=== PATIENT | female | born 1965 | race Caucasian/White ===

== ENCOUNTER 2021-01-14 09:42 | Outpatient (CLI) | payer OTHER, SELFPAY ==
--- NOTE | ~2021-01-14 | CT_ITS ---
EXAMINATION: CT abdomen pelvis wo/w con DATE: 01/14/2021 10:15 INDICATION: Hematuria TECHNIQUE: Computed tomography (CT) of the abdomen and pelvis was performed without and subsequently with 130 cc Omnipaque 350 intravenous contrast. Automated exposure control and iterative reconstructi on technique were employed. Exam dose: 1033.36 mGy-cm total exam DLP. COMPARISON: None. FINDINGS: There is minimal dependent atelectasis in the lower lobes. Normal heart size. No pericardial or pleural effusion. There is a small sliding hiatal hernia. 1.7 cm heavily calcified gallstone. No gallbladder wall thickening or pericholecystic fluid or fat s tranding. No hepatic space-occupying mass lesion. No bile duct dilatation. No pancreatic mass lesion, calcifica tion or ductal dilatation. Normal splenic size. Normal morphology of the adrenal glands. No urinary tract calculus or hydroureteronephrosis. No renal space occupying mass lesion is evident. There is a very small lower pole left renal cortical cyst. Normal caliber of the abdominal aorta. No intraperitoneal or retroperitoneal or pelvic mass lesion or adenopathy or ascites. 1.8 cm right ovarian cyst. The uterus and ovaries are otherwise unremarkable. Normal appendix. No bowel obstruction or bowel wall thickening, pneumatosis or intraperitoneal free a ir. There is irregularity at the right posterior base of the urinary bladder. Given the history of hematu syed, bladder malignancy is not excluded. Consider cystoscopy with biopsy if necessary. No suspicious osteolytic or osteoblastic lesions are noted. IMPRESSION: Irregularity at the right posterior base of the urinary bladder; considering the history of hematuria, bladder malignancy is not excluded. Consider cystoscopy with biopsy if necessary. Cholelithiasis Small sliding hiatal hernia 1.8 cm right ovarian cyst Reviewed, dictated and finalized at [facility]. Reviewed, dictated and finalized at [facility]. IMPRESSION: Irregularity at the right posterior base of the urinary bladder; c onsidering the history of hematuria, bladder malignancy is not excluded. Consid er cystoscopy with biopsy if necessary. Cholelithiasis Small sliding hiatal hernia 1.8 cm right ovarian cyst
== END 2021-01-14 09:43 | disposition home or self-care (01) ==
PROVIDERS: PCP Nurse Practitioner Family
DX: R31.9 Hematuria, unspecified (principal); K80.20 Calculus of gallbladder without cholecystitis without obstruction; K44.9 Diaphragmatic hernia without obstruction or gangrene; N83.201 Unspecified ovarian cyst, right side
CPT/HCPCS: 74178; Q9967

== ENCOUNTER 2023-02-07 20:54 | Emergency (ER) | payer BC, SELFPAY ==
--- NOTE | ~2023-02-07 | XR_ITS ---
EXAM: XR finger 2nd LT min 2V DATE: 02/07/2023 22:35 HISTORY: lac dist phalanx Lt 2nd finger, r/o fb/fx . COMPARISON: None available. FINDINGS: Normal mineralization. No fracture or dislocation. No lytic or blastic lesion. Joint space s are maintained. No erosion or periosteal change. Soft tissue disruption at the tip of the second fi nger with possible nail/nailbed involvement. IMPRESSION: No acute osseous finding the left second finger. No radiopaque foreign body. Soft tissues laceration/avulsion with possible nailbed involvement. Reviewed, dictated and finalized at [facility].
[2023-02-07 21:05] VITALS: BP 154/78; PULSE 74; RESP 16; O2SAT 100
--- NOTE | 2023-02-08 00:14 | ED.WOUNDLAC ---
HPI - Wound/Laceration General Chief Complaint: Wound/Laceration Stated Complaint: finger laceration Time Seen by Provider: 02/07/23 21:40 Source: patient Mode of arrival: ambulatory Limitations: no limitations History of Present Illness HPI narrative: Patient is a 49-year-old female who presents to the ED with a laceration to her left second digit. Patient reports she was making a Halloween costume tonight when using fabric gladis when she accidentally cut off a piece of skin from her left second digit. She was able to save the additional piece of skin and did bring this in with her bandaged to her finger. Reports pain to digit, no other injuries. Denies numbness or tingling. Tetanus up-to-date. Related Data Home Medications Medication Instructions Recorded Confirmed levothyroxine 25 mcg capsule 25 mcg PO DAILY 01/27/21 11/08/22 Allergies Allergy/AdvReac Type Severity Reaction Status Date / Time No Known Allergies Allergy Mild Verified 02/07/23 20:55 Review of Systems Review of Systems: CONSTITUTIONAL: Denies fever, chills, or sweats. SKIN: See HPI. MUSCULOSKELETAL: See HPI. NEUROLOGIC: Denies tingling, numbness, or weakness. All systems reviewed & are unremarkable except as noted in HPI and below PMFSH Past Medical History Medical History History of thyroid disorder hypothyroid / graves disease Screening mammogram, encounter for Family History Family History Mother Carcinoma of colon Father Heart disease Diabetes mellitus Acute myocardial infarction Sibling Breast cancer sister H/O ovarian cancer sister Acute myocardial infarction sister Diabetes mellitus sister Social History Social History Smoking packs per day: 1 Smoking cigarettes per day: 20.0 Smoking status: Current every day smoker Tobacco type: cigarettes Alcohol intake: never Substance use: never Substance use type: does not use Lack of Transportation: No Lack of Food: Never True Current Housing: I Have Housing Concerned About Future Housing: No Difficulty Paying Gas/Electric Bills: No Difficulty Paying for Meds: No Currently Unemployed: No Education: High School Diploma/GED Difficulty w/ Childcare or Family Care: No Living arrangements: alone Additional living arrangements comments: Occupation/Education: occupation 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 HEAD: Normocephalic, atraumatic. NECK: Supple. No adenopathy, no masses. RESPIRATORY: Airway patent, respirations nonlabored. CARDIOVASCULAR: Regular rate and rhythm without murmurs, rubs, or gallops. Radial pulses 2+ and equal bilaterally. MUSCULOSKELETAL: Moves all extremities. Strength/ROM intact. Distal sharp touch sensation intact to left second digit. Approximately 2 X 1 cm oval shaped piece of skin avulsed from distal medial left second digit, currently bandaged to finger with bandage holding avulsed skin piece in place. No significant active bleeding. Thin layer of medial edge of nail avulsed. Cuticle intact. SKIN: Warm, dry, normal color. No rashes. NEURO: A&O X3. Speech clear. Cranial nerves II-XII grossly intact. Steady gait. No ataxic movements. PSYCHIATRIC: Appropriate mood and affect. Normal interaction. Course Vital Signs Vital signs: Vital Signs Pulse Rate 74 02/07/23 21:05 Respiratory Rate 16 02/07/23 21:05 Blood Pressure 154/78 H 02/07/23 21:05 Pulse Oximetry 100 02/07/23 21:05 Oxygen Delivery Room Air 02/07
[2023-02-08] MEDS: ceFAZolin SODIUM 1 GM VIAL IM (00:34)
[2023-02-08] MEDS: LIDOCAINE HCL 1% LOCAL INJ 10 ML VIAL 5 ML INFILTRATE (00:39)
[2023-02-08] MEDS: CELLULOSE OXIDIZED 2 x 14 INCH 1 PKT XX (01:24)
[2023-02-08 02:01] VITALS: BP 147/82; PULSE 71; RESP 16; O2SAT 100
== END 2023-02-08 02:03 | disposition home or self-care (01) ==
PROVIDERS: Emergency Provider Physician Assistant; PCP Nurse Practitioner Family
DX: S61.311A Laceration without foreign body of left index finger with damage to nail, initial encounter (principal); E05.00 Thyrotoxicosis with diffuse goiter without thyrotoxic crisis or storm; E03.9 Hypothyroidism, unspecified; F17.210 Nicotine dependence, cigarettes, uncomplicated; W27.2XXA Contact with scissors, initial encounter
CPT/HCPCS: 73140; 96372; 99283; J0690

== ENCOUNTER 2024-10-05 17:35 | Emergency (ER) | payer BC, SELFPAY ==
--- NOTE | ~2024-10-05 | XR_ITS ---
Exam: Abdomen 1V HISTORY: epigastric pain/bloating awhile worse today hx gallstones COMPARISON: None. Reference was made to CT examination dated 01/14/2021. TECHNIQUE: Supine images of the abdomen FINDINGS: Bowel gas pattern is non-obstructive. There is no free air or deep sulci. Lamellated stone in the right upper quadrant, unchanged from 202. Lung bases are unremarkable. Bones and soft tissues are unremarkable. IMPRESSION: Nonspecific, nonobstructive bowel gas pattern. Reviewed, dictated and finalized at location [facility].
--- NOTE | 2024-10-05 17:36 | ED.ABDPAIN ---
HPI - Abdominal Pain General Chief Complaint: Abdominal Pain Stated Complaint: stomach pain Time Seen by Provider: 10/05/24 17:36 Source: patient Mode of arrival: ambulatory Limitations: no limitations History of Present Illness HPI narrative: Marychuy is a 59-year-old female patient presenting to the clinic today with complaints of mid epigastric abdominal pain with pain/burning radiating across the upper abdomen and into her back. Symptoms started approximately 1.5 hours ago. C/o some nausea and spit up some saliva. Reports she chronically feels bloated. Denies any chest pain or shortness of breath. History of gallstones,GERD, and small hiatal hernia. Symptoms have improved and rates her pain currently a /. No fevers. Denies any urinary symptoms. Denies any blood in her stool. Last bowel movement was today. History blood in her urine. Has seen GI specialist in the past. Related Data Home Medications ?Medication ?Instructions ?Recorded ?Confirmed ?Last Taken ?Type levothyroxine 25 mcg capsule 25 mcg PO DAILY 01/27/21 11/08/22 Unknown History Allergies Allergy/AdvReac Type Severity Reaction Status Date / Time No Known Allergies Allergy Mild Verified 10/05/24 17:43 Review of Systems Review of Systems: Pertinent positives per HPI. Patient denies any fever, chills, rash, headache, visual changes, dizziness, cough, runny nose, sore throat, shortness of breath, chest pain, palpitations, nausea, vomiting, diarrhea, constipation, or any urinary issues. PMFSH Past Medical History Medical History Screening mammogram, encounter for History of thyroid disorder hypothyroid / graves disease Family History Family History Mother Carcinoma of colon Father Heart disease Diabetes mellitus Acute myocardial infarction Sibling Breast cancer sister H/O ovarian cancer sister Acute myocardial infarction sister Diabetes mellitus sister Social History Social History Smoking packs per day: 1 Smoking cigarettes per day: 20.0 Smoking status: Current every day smoker Tobacco type: cigarettes Alcohol intake: never Substance use: never Substance use type: does not use Lack of Transportation: No Lack of Food: Never True Current Housing: I Have Housing Concerned About Future Housing: No Difficulty Paying Gas/Electric Bills: No Difficulty Paying for Meds: No Currently Unemployed: No Education: High School Diploma/GED Difficulty w/ Childcare or Family Care: No Living arrangements: alone Additional living arrangements comments: Occupation/Education: occupation 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 There is no relevant family history pertinent to the patient complaint. Exam Narrative: General: Well-developed, well nourished, in no apparent distress. Head: Normocephalic, atraumatic. Cardio: Regular rate and rhythm, s1 and s2 normal, no murmur appreciated. Resp: Clear to auscultation bilaterally, no rhonchi, rales, wheezing or rubs. Abdomen: Soft, pliable, bowel sounds present in all quadrants, non-tender to palpation, no organomegly, no CVAT tenderness. Course Course Emergency Course: Portions of this record may have been created with voice recognition software. Level of Care: Express Care Visit Vital Signs Vital signs: Vital Signs Temperature 36.3 C L 10/05/24 17:43 Pulse Rate 72 10/05/24 17:43 Respiratory Rate 16 10/05/24 17:43 Blood Pressure 102/67 10/05/24 17:43 Pulse Oximetry 98 10/05/24 17:43 Oxygen Delivery Room Air 10/05/24 17:43 Temperature 36.3 C L 10/05/24 17:43 Pulse Rate 72 10/05/24 17:43 Respiratory Rate 16 10/05/24 17:43 Blood Pressure 102/67 10/05/24 17:43 Pulse Oximetry 98 10/05/24 17:43 Oxygen Delivery Room Air 10/05/24 17:43 Vital signs reviewed MDM - Abdominal Pain MDM Narrative Medical decision making narrative: At the time of visit patient is resting comfortably on the exam table. Patient appears to be nontoxic. EKG: EKG shows sinus rhythm with heart rate of 65 beats per minute without ST elevation or depression, does have a nonspecific T-wave abnormality. Labs: Urinalysis shows 2+ blood no sign of infection. Diagnostics: KUB x-ray was performed and is negative for any acute abdomen pathology Plan: I suspect patent has midepigastric abdominal pain. Offer to give patient a GI cocktail and she declined at this time. She would like to try taking [id number] antacids to see if this helps alleviate her symptoms. States her symptoms have improved but occasionally she has a flare. Supportive measures were discussed with the patient and they voiced understanding discharge instructions and agrees to treatment plan. Return precautions reviewed Differential Diagnosis Differential diagnosis: Likely abdominal pain, acute appendicitis, calculus of kidney, constipation, diverticulitis, gastroenteritis, pancreatitis and small bowel obstruction Lab Data Labs: Lab Results 10/05/24 Range/Units 17:57 POC Urine Color Dark POC Urine Clarity Clear POC Urine pH 6.0 POC Ur Specif [place] 1.030 POC Urine Protein Negative (Negative) POC Ur Glucose (UA) Negative (Negative) POC Urine Ketones Negative (Negative) POC Urine Blood 2+ (Negative) POC Urine Nitrite Negative (Negative) POC Urine Bilirubin Negative (Negative) POC Urine Urobilinogen 0.2 POC U Leukocyte Esteras Negative (Negative) Imaging Data Radiologist's impression: ITS Impressions Abdomen X-Ray 10/05/24 18:09 IMPRESSION: Nonspecific, nonobstructive bowel gas pattern. ECG Data EKG #1: Attestation: I personally reviewed and interpreted this ECG as follows: ECG completion date: 10/05/24 ECG completion time: 17:52 Prior ECG tracings: not available for review Interpretation: EKG shows sinus rhythm with the a nonspecific T-wave abnormality. Heart rate 65 beats per minute. WA interval is 144 milliseconds, QRS durations 98 milliseconds, QT-QTC is 3432-4 her 44 milliseconds, P-R-T axis is 73 64 79 Discharge Plan Discharge Clinical Impression: Epigastric abdominal pain Patient Disposition: Home Condition: Stable Instructions: Antibiotic Form, GERD (Gastroesophageal Reflux Disease) (ED), Abdominal Pain (ED) Additional Instructions: X-rays negative for any sign of obstruction-do have stool throughout your colon EKG is normal in the clinic today Urinalysis shows 2+ blood but no sign of infection. Increase fluids and stay well hydrated Increase fiber in your diet Avoid eating spicy or fatty foods, chocolate, or drinking caffeine. Avoid foods that cause you to feel bloated. Stop smoking Lose weight/exercise May take Gas-X as needed for abdominal bloating May take Pepcid or omeprazole daily Stay upright for at least 30 minutes after eating. May use tums for immediate relief Follow up with your PCP in 3-5 days if symptoms persist. Patient Language: Uzbek Prescriptions: No Action levothyroxine 25 mcg capsule 25 mcg PO DAILY Follow-up/Referrals: Kellie,Mickie Cowart, CARTOGRAPHIC TECHNICIAN [Primary Care Provider] - Time of Disposition: 18:29 Quality NIHSS Nursing Documentation ED NIHSS nursing documentation: reviewed/agree
[2024-10-05 17:43] VITALS: BP 102/67; PULSE 72; RESP 16; TEMP 36.3; O2SAT 98
--- NOTE | 2024-10-05 17:54 | ECG_ITS ---
Test Date: 2024-10-05 17:52:45 Measurements Intervals [place] Rate: 65 P: 73 DC: 144 QRS: 64 QRSD: 98 T: 79 QT: 432 QTc: 451 Interpretive Statements SINUS RHYTHM NONSPECIFIC T-WAVE ABNORMALITY- ANT/HIGH LAT LEADS BASELINE ARTIFACT- I, III, AVL, V4 BORDERLINE ECG No previous ECG available for comparison Electronically Signed On 10-08-2024 09:40:30 CDT by Keanu Sandoval D.O.
[2024-10-05 18:03] LABS: EDUAAPPEAR Clear; EDUABILI Negative (Negative); EDUABLOOD 2+ (Negative); EDUACOLOR1 Dark; EDUAGLUCOSE Negative (Negative); EDUAKETONE Negative (Negative); EDUALEUKO Negative (Negative); EDUANITRATE Negative (Negative); EDUAPROTEIN Negative (Negative); EDUAUROBILI 0.2
== END 2024-10-05 18:33 | disposition home or self-care (01) ==
PROVIDERS: Emergency Provider Nurse Practitioner Family
DX: R10.13 Epigastric pain (principal); F17.210 Nicotine dependence, cigarettes, uncomplicated
CPT/HCPCS: 74018; 81003; 93005; 99213; G0463